=== PATIENT | female | born 1965 | race African-American/Black ===

== ENCOUNTER 2016-08-28 18:05 | Inpatient (IN) | payer OTHER ==
[~2016-08-28] VITALS: Ht 157.5 cm; Wt 94.9 kg
[~2016-08-28 18:05] MED LIST: AMLO10TA4; COR12; DIXL5; FURO-151; GABA300C; GLYB5TAB4; LISI-604; LORA10CA; METF10002; POTA8TAB4; PROT40; ZOLP10TA2
[2016-08-28] MEDS ORDERED: ASPIRIN 81MG TABLET PO STA (18:46)
[2016-08-28] MEDS ORDERED: ONDANSETRON HCL 4MG/2ML VIAL IV STA (18:46)
[2016-08-28] MEDS ORDERED: MORPHINE SULFATE 4 MG/ML CPJ (NOT FOR IM USE) IV STA (18:46)
[2016-08-28] MEDS ORDERED: METHYLPREDNISOLONE SOD SUCC 125 MG/2 ML VIAL IV STA (18:46)
[2016-08-28] MEDS ORDERED: IPRATROPIUM/ALBUTEROL 0.5-3(2.5)MG/3ML NEB HHN ONE (19:00)
[2016-08-28] MEDS ORDERED: MAGNESIUM 2 G PREMIX 50 ML IV ONE (19:00)
[2016-08-28] MEDS ORDERED: CLONIDINE 0.2MG TABLET PO ONE (19:00)
[2016-08-28 19:11] LABS: BG BASE EXCESS 0.7 mmol/L (-2.0-2.0); BG CARBOXYHEMOGLOBIN 10.5 % (0.5-1.5); BG DEOXYHEMOGLOBIN 3.4 % (0.0-5.0); BG FRACTION INSPIRED OXYGEN 32; BG HCO3 ACT 25.5 mmol/L (22.0-26.0); BG METHEMOGLOBIN 0.1 % (0.0-1.5); BG OXYGEN SATURATION 96.2 % (92.0-98.5); BG PCO2 41.2 mmHg (35.0-45.0); BG PH 7.409 (7.350-7.450); BG PO2 84.7 mmHg (75.0-100.0); BG SAMPLE SITE RIGHT RADIAL; BG TOTAL HEMOGLOBIN 14.2 g/dL (12.0-18.0); BG VENT MODE NASAL CANNULA
[2016-08-28 19:19] LABS: BASOPHILS % 1.1 % (0.0-2.0); EOSINOPHILS % 1.4 % (0.0-5.0); HEMATOCRIT. 39.9 % (36.0-48.0); HEMOGLOBIN. 13.4 g/dL (12.0-16.0); MEAN CORPUSCULAR HEMOGLOBIN 31.5 pg (28.0-32.0); MEAN CORPUSCULAR VOLUME 93.8 fL (81.0-99.0); MEAN PLATELET VOLUME 7.8 fl (7.4-10.4); NEUTROPHILS % 47.5 % (40.0-76.0); PARTIAL THROMBOPLASTIN TIME 26.3 sec (24.0-34.0); PLATELET 288 x1000/uL (130-400); RED BLOOD CELL COUNT 4.26 mill/uL (4.2-5.4); RED CELL DISTRIBUTION WIDTH 13.7 % (11.6-14.6)
[2016-08-28 19:27] LABS: CARBON DIOXIDE 27 mEq/L (21-32); CHLORIDE 105 mEq/L (98-107); CREATINE KINASE 114 IU/L (26-192)
[2016-08-28 19:28] LABS: TROPONIN I < 0.02 ng/mL (0.00-0.04)
[2016-08-28 20:07] LABS: CLARITY URINE CLEAR (CLEAR); COLOR URINE YELLOW (YELLOW); GLUCOSE URINE NEGATIVE (NEGATIVE); KETONES URINE TRACE (NEGATIVE); LEUKOCYTE ESTERASE URINE NEGATIVE (NEGATIVE); NITRITE URINE NEGATIVE (NEGATIVE); OCCULT BLOOD URINE NEGATIVE (NEGATIVE); PROTEIN URINE 1+ (NEGATIVE); SPECIFIC GRAVITY URINE 1.023 (1.005-1.030)
[2016-08-28 20:18] LABS: *AMPHETAMINES SCREEN URINE NEGATIVE (NEGATIVE); *BARBITURATES SCREEN URINE NEGATIVE (NEGATIVE); *BENZODIAZEPINES SCREEN URINE NEGATIVE (NEGATIVE); *COCAINE SCREEN URINE NEGATIVE (NEGATIVE); CANNABINOID URINE SCREEN NEGATIVE (NEGATIVE); METHADONE URINE SCREEN NEGATIVE (NEGATIVE); OPIATES URINE SCREEN PRESUMTIVE POSITIVE (NEGATIVE); PHENCYCLIDINE URINE SCREEN NEGATIVE (NEGATIVE)
[2016-08-28] MEDS ORDERED: ONDANSETRON HCL 4MG/2ML VIAL IV ONE (22:15)
[2016-08-28] MEDS ORDERED: KETOROLAC 30MG/ML VIAL IV ONE (22:15)
[2016-08-28] MEDS ORDERED: MORPHINE SULFATE 4 MG/ML CPJ (NOT FOR IM USE) IV ONE (22:15)
[2016-08-28] MEDS ORDERED: HYDROCODONE/APAP 7.5/325MG 1 TAB TABLET PO PRN (23:00)
[2016-08-28] MEDS ORDERED: LORAZEPAM 2MG/ML CPJ IV PRN (23:00)
[2016-08-28] MEDS ORDERED: MAGNESIUM/ALUMINUM HYDROXIDE/SIMETHICONE 30ML UDC PO PRN (23:00)
[2016-08-28] MEDS ORDERED: NA PHOS,M-B/NA PHOS,DI-BA ENEMA 118ML PR PRN (23:00)
[2016-08-28] MEDS ORDERED: GUAIFENESIN 200MG/10ML SUGAR FREE UDC PO PRN (23:00)
[2016-08-28] MEDS ORDERED: DIPHENHYDRAMINE 50MG/ML VIAL IV PRN (23:00)
[2016-08-28] MEDS ORDERED: DOCUSATE SODIUM 100MG CAPSULE PO PRN (23:00)
[2016-08-28] MEDS ORDERED: ACETAMINOPHEN 325MG TABLET PO PRN (23:00)
[2016-08-28] MEDS ORDERED: CLONIDINE 0.1MG TABLET PO PRN (23:00)
[2016-08-28] MEDS ORDERED: HYDROMORPHONE HCL/PF 2MG/ML CPJ IV PRN (23:00)
[2016-08-28] MEDS ORDERED: ONDANSETRON HCL 4MG/2ML VIAL IV PRN (23:00)
[2016-08-28] MEDS ORDERED: IPRATROPIUM/ALBUTEROL 0.5-3(2.5)MG/3ML NEB INH PRN (23:00)
[2016-08-29 04:15] VITALS: BP 118/78
[2016-08-29] MEDS ORDERED: DEXTROSE 50% WATER 50ML SYRINGE IV PRN (04:45)
[2016-08-29 04:48] VITALS: BP 118/78
[2016-08-29] MEDS ORDERED: METHYLPREDNISOLONE SOD SUCC 125 MG/2 ML VIAL IV SCH (06:00)
[2016-08-29 07:36] LABS: BASOPHILS % 0.7 % (0.0-2.0); EOSINOPHILS % 0.1 % (0.0-5.0); HEMATOCRIT. 40.5 % (36.0-48.0); HEMOGLOBIN. 13.2 g/dL (12.0-16.0); LYMPHOCYTES % 11.6 % (20.0-50.0); MEAN CORPUSCULAR VOLUME 94.8 fL (81.0-99.0); MEAN PLATELET VOLUME 8.2 fl (7.4-10.4); MONOCYTES % 1.8 % (2.0-8.0); NEUTROPHILS % 85.8 % (40.0-76.0); PLATELET 278 x1000/uL (130-400); RED BLOOD CELL COUNT 4.27 mill/uL (4.2-5.4); RED CELL DISTRIBUTION WIDTH 13.6 % (11.6-14.6)
[2016-08-29] MEDS ORDERED: BLOOD SUGAR DIAGNOSTIC STRIP TEST SCH (07:40)
[2016-08-29 08:02] LABS: CARBON DIOXIDE 27 mEq/L (21-32); CHLORIDE 103 mEq/L (98-107); HDL CHOLESTEROL 38 mg/dL (40-59); T4 FREE 0.89 ng/dL (0.76-1.46); TROPONIN I < 0.02 ng/mL (0.00-0.04)
[2016-08-29 08:07] LABS: LDL CHOLESTEROL 66 mg/dL (5-100)
[2016-08-29] MEDS ORDERED: INSULIN LISPRO 100 UNITS/ML SUBCUT SCH (08:10)
[2016-08-29 08:19] VITALS: BP 138/88
[2016-08-29] MEDS ORDERED: IPRATROPIUM/ALBUTEROL 0.5-3(2.5)MG/3ML NEB HHN PRN (08:45)
[2016-08-29] MEDS ORDERED: FUROSEMIDE 40MG/4ML VIAL IV SCH (09:00)
[2016-08-29] MEDS ORDERED: ENOXAPARIN 40MG/0.4ML SYR SUBCUT SCH (09:00)
[2016-08-29] MEDS ORDERED: ASPIRIN 81MG EC TABLET PO SCH (09:00)
[2016-08-29] MEDS ORDERED: IPRATROPIUM/ALBUTEROL 0.5-3(2.5)MG/3ML NEB HHN SCH (12:00)
== END 2016-08-29 10:50 | disposition left against medical advice (07) | DRG 194 ==
LOC: EDBEDREQ 20:56 → EDBEDREQTM 20:56 → ER 22:32 → 7WST 22:52 → ENRESERV 08-29 02:49
PROVIDERS: ADMIT Internal Medicine; ATTEND Internal Medicine
DX: I11.0 Hypertensive heart disease with heart failure (principal); E11.40 Type 2 diabetes mellitus with diabetic neuropathy, unspecified; E88.81 Metabolic syndrome and other insulin resistance; I50.9 Heart failure, unspecified; E78.5 Hyperlipidemia, unspecified; E66.9 Obesity, unspecified; F17.210 Nicotine dependence, cigarettes, uncomplicated; J44.9 Chronic obstructive pulmonary disease, unspecified; G47.33 Obstructive sleep apnea (adult) (pediatric); Z90.49 Acquired absence of other specified parts of digestive tract; Z68.38 Body mass index [BMI] 38.0-38.9, adult
CPT/HCPCS: 36415; 36600; 71010; 80053; 80061; 80305; 81001; 82375; 82550; 82805; 82962; 83605; 83690; 83880; 84439; 84443; 84484; 85025; 85610; 85730; 87040; 93005; 94640; 96365; 96375; 96376; 99285; J1650; J1815; J1885; J1940; J2270; J2405; J2930; J3475; J7620

== ENCOUNTER 2016-09-20 15:08 | Emergency (ER) | payer OTHER ==
[~2016-09-20] VITALS: Ht 160 cm; Wt 92.0 kg
[2016-09-20] MEDS ORDERED: IPRATROPIUM BROMIDE (0.02%) 0.5MG/2.5ML NEB HHN STA (15:40)
[2016-09-20] MEDS ORDERED: ALBUTEROL (0.083%) 2.5MG/3ML NEB HHN STA (15:40)
[2016-09-20] MEDS ORDERED: KETOROLAC 30MG/ML VIAL IV ONE (15:45)
[2016-09-20 16:18] LABS: BASOPHILS % 1.2 % (0.0-2.0); EOSINOPHILS % 2.3 % (0.0-5.0); HEMATOCRIT. 38.2 % (36.0-48.0); HEMOGLOBIN. 12.8 g/dL (12.0-16.0); LYMPHOCYTES % 44.3 % (20.0-50.0); MEAN CORPUSCULAR HEMOGLOBIN 31.2 pg (28.0-32.0); MEAN CORPUSCULAR VOLUME 93.2 fL (81.0-99.0); MEAN PLATELET VOLUME 8.6 fl (7.4-10.4); MONOCYTES % 7.6 % (2.0-8.0); NEUTROPHILS % 44.6 % (40.0-76.0); PLATELET 238 x1000/uL (130-400); RED CELL DISTRIBUTION WIDTH 13.5 % (11.6-14.6)
[2016-09-20 16:27] LABS: PROTHROMBIN TIME 10.2 sec
[2016-09-20 16:34] LABS: C REACTIVE PROTEIN QUANT 8.6 mg/L (0.0-3.0); CARBON DIOXIDE 30 mEq/L (21-32); CHLORIDE 104 mEq/L (98-107); TROPONIN I < 0.02 ng/mL (0.00-0.04)
[2016-09-20 17:20] VITALS: BP 134/78
== END 2016-09-20 18:06 | disposition home or self-care (01) ==
LOC: ER 15:53
DX: S52.132A Displaced fracture of neck of left radius, initial encounter for closed fracture (principal); I11.0 Hypertensive heart disease with heart failure; I50.9 Heart failure, unspecified; M10.9 Gout, unspecified; J44.9 Chronic obstructive pulmonary disease, unspecified; E11.9 Type 2 diabetes mellitus without complications; F17.200 Nicotine dependence, unspecified, uncomplicated; Z99.81 Dependence on supplemental oxygen; X58.XXXA Exposure to other specified factors, initial encounter; Y93.89 Activity, other specified; Y92.89 Other specified places as the place of occurrence of the external cause; Y99.8 Other external cause status
CPT/HCPCS: 29105; 36415; 71010; 73080; 80053; 83605; 83690; 83880; 84484; 84550; 85025; 85610; 85651; 86140; 87040; 93005; 94640; 96374; 99285; J1885; J7611; Z7610; A4565

== ENCOUNTER 2016-09-21 14:24 | Emergency (ER) | payer OTHER ==
[~2016-09-21] VITALS: Ht 160 cm; Wt 91.0 kg
[2016-09-21 14:34] VITALS: BP 129/74
== END 2016-09-21 16:00 | disposition home or self-care (01) ==
LOC: ER 15:09
DX: Z46.89 Encounter for fitting and adjustment of other specified devices (principal); I10 Essential (primary) hypertension; E11.9 Type 2 diabetes mellitus without complications; R56.9 Unspecified convulsions; J44.9 Chronic obstructive pulmonary disease, unspecified; I50.9 Heart failure, unspecified; F17.200 Nicotine dependence, unspecified, uncomplicated; Z90.49 Acquired absence of other specified parts of digestive tract
CPT/HCPCS: 29105; 99283

== ENCOUNTER 2016-09-28 19:30 | Emergency (ER) | payer OTHER ==
[~2016-09-28] VITALS: Ht 160 cm; Wt 91.0 kg
[2016-09-28] MEDS ORDERED: IPRATROPIUM BROMIDE (0.02%) 0.5MG/2.5ML NEB HHN STA (21:23)
[2016-09-28] MEDS ORDERED: PREDNISONE 20MG TABLET PO STA (21:23)
[2016-09-28] MEDS ORDERED: ALBUTEROL (0.083%) 2.5MG/3ML NEB HHN STA (21:23)
[2016-09-28] MEDS ORDERED: ACETAMINOPHEN WITH CODEINE 300/30MG TABLET PO ONE (21:30)
[2016-09-28 23:17] VITALS: BP 120/77
== END 2016-09-28 23:22 | disposition home or self-care (01) ==
LOC: ER 21:49
DX: S52.132A Displaced fracture of neck of left radius, initial encounter for closed fracture (principal); E11.9 Type 2 diabetes mellitus without complications; J44.9 Chronic obstructive pulmonary disease, unspecified; I50.9 Heart failure, unspecified; F17.200 Nicotine dependence, unspecified, uncomplicated; X58.XXXA Exposure to other specified factors, initial encounter; Y93.89 Activity, other specified; Y92.89 Other specified places as the place of occurrence of the external cause; Y99.8 Other external cause status
CPT/HCPCS: 29105; 99283; 99406; Z7610; A4565; J7512; J7611

== ENCOUNTER 2016-11-17 14:48 | Emergency (ER) | payer OTHER ==
[~2016-11-17] VITALS: Ht 157.5 cm; Wt 93.0 kg
[2016-11-17 14:55] VITALS: BP 136/85
== END 2016-11-17 22:00 | disposition left against medical advice (07) ==
LOC: ER 21:50
DX: R07.9 Chest pain, unspecified (principal); Z53.21 Procedure and treatment not carried out due to patient leaving prior to being seen by health care provider
CPT/HCPCS: 93005

== ENCOUNTER 2017-04-10 02:51 | Emergency (ER) | payer OTHER ==
[~2017-04-10] VITALS: Ht 157.5 cm; Wt 87.0 kg
[2017-04-10] MEDS ORDERED: ALBUTEROL (0.083%) 2.5MG/3ML NEB HHN STA (03:17)
[2017-04-10] MEDS ORDERED: IPRATROPIUM BROMIDE (0.02%) 0.5MG/2.5ML NEB HHN STA (03:17)
[2017-04-10] MEDS ORDERED: METHYLPREDNISOLONE SOD SUCC 125 MG/2 ML VIAL IV STA (03:17)
[2017-04-10] MEDS ORDERED: MAGNESIUM 2 G PREMIX 50 ML IV ONE (03:30)
[2017-04-10 03:37] LABS: BASOPHILS % 1.2 % (0.0-2.0); EOSINOPHILS % 2.3 % (0.0-5.0); HEMATOCRIT. 40.6 % (36.0-48.0); HEMOGLOBIN. 13.5 g/dL (12.0-16.0); LYMPHOCYTES % 47.3 % (20.0-50.0); MEAN CORPUSCULAR HEMOGLOBIN 30.9 pg (28.0-32.0); MEAN CORPUSCULAR VOLUME 93.1 fL (81.0-99.0); MONOCYTES % 5.8 % (2.0-8.0); NEUTROPHILS % 43.4 % (40.0-76.0); PLATELET 245 x1000/uL (130-400); RED BLOOD CELL COUNT 4.35 mill/uL (4.2-5.4); RED CELL DISTRIBUTION WIDTH 13.3 % (11.6-14.6)
[2017-04-10 03:45] LABS: INR 0.9; PROTHROMBIN TIME 9.8 sec (9.4-11.6)
[2017-04-10 03:53] LABS: CARBON DIOXIDE 28 mEq/L (21-32); CHLORIDE 107 mEq/L (98-107); TROPONIN I < 0.02 ng/mL (0.00-0.04)
[2017-04-10 08:18] VITALS: BP 139/78
== END 2017-04-10 09:02 | disposition left against medical advice (07) ==
LOC: ER 02:51 → EDBEDREQSVC 05:55 → EDBEDREQTM 05:55 → EDBEDREQ 05:55 → ENRESERV 07:03 → CANRESERV 07:03 → ER 09:02 → CANBEDREQ 16:29
DX: J44.1 Chronic obstructive pulmonary disease with (acute) exacerbation (principal); J96.90 Respiratory failure, unspecified, unspecified whether with hypoxia or hypercapnia; E11.9 Type 2 diabetes mellitus without complications; I50.9 Heart failure, unspecified; G40.909 Epilepsy, unspecified, not intractable, without status epilepticus; Z90.49 Acquired absence of other specified parts of digestive tract
CPT/HCPCS: 36415; 71045; 80053; 83605; 83880; 84484; 85025; 85610; 87040; 87804; 93005; 94644; 94660; 96365; 96375; 99291; J2930; J3475; J7611; Z7610

== ENCOUNTER 2017-05-30 07:54 | Emergency (ER) | payer OTHER ==
[~2017-05-30] VITALS: Ht 157.5 cm; Wt 87.0 kg
[2017-05-30] MEDS ORDERED: SODIUM CHLORIDE 0.9% 1,000 ML IV ONE (09:18)
[2017-05-30] MEDS ORDERED: DIPHENHYDRAMINE 50MG/ML VIAL IV ONE (09:30)
[2017-05-30] MEDS ORDERED: METOCLOPRAMIDE HCL 10MG/2ML VIAL IV ONE (09:30)
[2017-05-30 09:34] LABS: EOSINOPHILS % 1.6 % (0.0-5.0); HEMATOCRIT. 37.3 % (36.0-48.0); HEMOGLOBIN. 12.7 g/dL (12.0-16.0); LYMPHOCYTES % 45.3 % (20.0-50.0); MEAN CORPUSCULAR HEMOGLOBIN 31.4 pg (28.0-32.0); MEAN CORPUSCULAR VOLUME 92.2 fL (81.0-99.0); MEAN PLATELET VOLUME 7.9 fl (7.4-10.4); MONOCYTES % 7.5 % (2.0-8.0); NEUTROPHILS % 44.6 % (40.0-76.0); PLATELET 257 x1000/uL (130-400); RED BLOOD CELL COUNT 4.05 mill/uL (4.2-5.4); RED CELL DISTRIBUTION WIDTH 13.1 % (11.6-14.6)
[2017-05-30 09:43] LABS: PARTIAL THROMBOPLASTIN TIME 25.8 sec (23.4-31.0); PROTHROMBIN TIME 10.3 sec (9.4-11.6)
[2017-05-30 09:45] LABS: CHLORIDE 107 mEq/L (98-107)
[2017-05-30] MEDS ORDERED: ASPIRIN 81MG TABLET PO ONE (11:15)
[2017-05-30] MEDS ORDERED: PHENYTOIN SODIUM 1,000 MG in SODIUM CHLORIDE 0.9% 100 ML IV ONE (11:30)
[2017-05-30 15:07] LABS: *AMPHETAMINES SCREEN URINE NEGATIVE (NEGATIVE); *BARBITURATES SCREEN URINE NEGATIVE (NEGATIVE); *BENZODIAZEPINES SCREEN URINE NEGATIVE (NEGATIVE); *COCAINE SCREEN URINE NEGATIVE (NEGATIVE); METHADONE URINE SCREEN NEGATIVE (NEGATIVE); OPIATES URINE SCREEN PRESUMTIVE POSITIVE (NEGATIVE)
[2017-05-30 15:08] LABS: CANNABINOID URINE SCREEN NEGATIVE (NEGATIVE); PHENCYCLIDINE URINE SCREEN NEGATIVE (NEGATIVE)
[2017-05-30] MEDS ORDERED: ACETAMINOPHEN 325MG TABLET PO PRN (16:15)
[2017-05-30] MEDS ORDERED: IPRATROPIUM/ALBUTEROL 0.5-3(2.5)MG/3ML NEB INH PRN (16:15)
[2017-05-30] MEDS ORDERED: ONDANSETRON HCL 4MG/2ML VIAL IV PRN (16:15)
[2017-05-30] MEDS ORDERED: ENOXAPARIN 40MG/0.4ML SYR SUBCUT SCH (16:15)
[2017-05-30] MEDS ORDERED: DOCUSATE SODIUM 100MG CAPSULE PO PRN (16:15)
[2017-05-30] MEDS ORDERED: LORAZEPAM 2MG/ML CPJ IV PRN (16:15)
[2017-05-30] MEDS ORDERED: CARVEDILOL 12.5MG TABLET PO SCH (17:00)
[2017-05-30 17:18] VITALS: BP 126/82
[2017-05-31] MEDS ORDERED: FUROSEMIDE 40MG TABLET PO SCH (09:00)
[2017-05-31] MEDS ORDERED: AMLODIPINE 10MG TABLET PO SCH (09:00)
[2017-05-31] MEDS ORDERED: GLYBURIDE 5MG TABLET PO SCH (09:00)
[2017-05-31] MEDS ORDERED: PANTOPRAZOLE 40MG DR TABLET PO SCH (09:00)
[2017-05-31] MEDS ORDERED: LISINOPRIL 20MG TABLET PO SCH (09:00)
[2017-05-31] MEDS ORDERED: GABAPENTIN 300MG CAPSULE PO SCH (09:00)
[2017-05-31] MEDS ORDERED: POTASSIUM CHLORIDE 8 MEQ TABLET.SA PO SCH (09:00)
== END 2017-05-30 19:09 | disposition left against medical advice (07) ==
LOC: ER 08:39 → EDBEDREQ 11:38 → EDBEDREQTM 11:38 → ER 19:09 → CANBEDREQ 21:24
DX: R55 Syncope and collapse (principal); R51 Headache; G40.909 Epilepsy, unspecified, not intractable, without status epilepticus; I50.32 Chronic diastolic (congestive) heart failure; J44.9 Chronic obstructive pulmonary disease, unspecified; I11.0 Hypertensive heart disease with heart failure; H40.9 Unspecified glaucoma; E11.42 Type 2 diabetes mellitus with diabetic polyneuropathy; Z87.891 Personal history of nicotine dependence; Z91.14 Patient's other noncompliance with medication regimen; Z79.84 Long term (current) use of oral hypoglycemic drugs; Z79.82 Long term (current) use of aspirin; Z99.81 Dependence on supplemental oxygen; Z90.49 Acquired absence of other specified parts of digestive tract
CPT/HCPCS: 36415; 70450; 70544; 70553; 71045; 80053; 80185; 80305; 84484; 85025; 85610; 85730; 93005; 96361; 96365; 96366; 96375; 99285; J1165; J1200; J2765; J7030; J7050

== ENCOUNTER 2017-07-09 16:01 | Emergency (ER) | payer OTHER ==
[2017-07-09] MEDS ORDERED: IBUPROFEN 800MG TABLET PO ONE (17:15)
== END 2017-07-09 17:36 | disposition left against medical advice (07) ==
LOC: ER 17:34
DX: M54.2 Cervicalgia (principal); M54.5 Low back pain; M79.605 Pain in left leg; V89.2XXA Person injured in unspecified motor-vehicle accident, traffic, initial encounter; Y93.9 Activity, unspecified; Y92.410 Unspecified street and highway as the place of occurrence of the external cause
CPT/HCPCS: 99281

== ENCOUNTER 2017-07-21 15:02 | Emergency (ER) | payer OTHER ==
[~2017-07-21] VITALS: Ht 157.5 cm; Wt 92.0 kg
[2017-07-21 15:26] VITALS: BP 158/84
== END 2017-07-21 18:02 | disposition left against medical advice (07) ==
LOC: ER 17:43
DX: R51 Headache (principal); Z53.21 Procedure and treatment not carried out due to patient leaving prior to being seen by health care provider

== ENCOUNTER 2017-07-26 08:52 | Emergency (ER) | payer OTHER ==
[~2017-07-26] VITALS: Ht 157.5 cm; Wt 87.0 kg
[2017-07-26] MEDS ORDERED: ONDANSETRON HCL 4MG/2ML VIAL IV STA (09:31)
[2017-07-26] MEDS ORDERED: DICYCLOMINE 10 MG/5 ML ORAL SYR PO STA (09:31)
[2017-07-26] MEDS ORDERED: KETOROLAC 30MG/ML VIAL IV STA (09:31)
[2017-07-26] MEDS ORDERED: VISCOUS LIDOCAINE 2% 15 ML UDC PO STA (09:31)
[2017-07-26] MEDS ORDERED: MAGNESIUM/ALUMINUM HYDROXIDE/SIMETHICONE 30ML UDC PO STA (09:31)
[2017-07-26] MEDS ORDERED: SODIUM CHLORIDE 0.9% 1,000 ML IV ONE (09:31)
[2017-07-26] MEDS ORDERED: METOCLOPRAMIDE HCL 10MG/2ML VIAL IV ONE (09:45)
[2017-07-26] MEDS ORDERED: FAMOTIDINE 20MG/2ML VIAL IV ONE (09:45)
[2017-07-26] MEDS: DICYCLOMINE HCL 10MG CAPSULE PO STA ×2 (10:11→10:12)
[2017-07-26 11:07] LABS: BASOPHILS % 1.4 % (0.0-2.0); EOSINOPHILS % 0.8 % (0.0-5.0); HEMATOCRIT. 37.2 % (36.0-48.0); HEMOGLOBIN. 12.6 g/dL (12.0-16.0); LYMPHOCYTES % 39.2 % (20.0-50.0); MEAN CORPUSCULAR HEMOGLOBIN 31.7 pg (28.0-32.0); MEAN CORPUSCULAR VOLUME 93.1 fL (81.0-99.0); MEAN PLATELET VOLUME 8.1 fl (7.4-10.4); MONOCYTES % 6.7 % (2.0-8.0); NEUTROPHILS % 51.9 % (40.0-76.0); PLATELET 247 x1000/uL (130-400); RED BLOOD CELL COUNT 3.99 mill/uL (4.2-5.4); RED CELL DISTRIBUTION WIDTH 13.5 % (11.6-14.6)
[2017-07-26 11:11] LABS: CHLORIDE 108 mEq/L (98-107)
[2017-07-26 12:30] VITALS: BP 128/80
== END 2017-07-26 12:54 | disposition home or self-care (01) ==
LOC: ER 08:52
DX: R51 Headache (principal); H53.8 Other visual disturbances; I50.9 Heart failure, unspecified; J44.9 Chronic obstructive pulmonary disease, unspecified; E11.9 Type 2 diabetes mellitus without complications; E78.00 Pure hypercholesterolemia, unspecified; K21.9 Gastro-esophageal reflux disease without esophagitis; F17.200 Nicotine dependence, unspecified, uncomplicated; Z90.49 Acquired absence of other specified parts of digestive tract; Z79.899 Other long term (current) drug therapy
CPT/HCPCS: 36415; 80053; 82962; 85025; 93005; 96361; 96374; 96375; 99285; J1885; J2405; J2765; J3490; J7030; Z7610

== ENCOUNTER 2017-09-17 10:24 | Emergency (ER) | payer OTHER ==
[~2017-09-17] VITALS: Ht 167.6 cm; Wt 88.7 kg
[~2017-09-17 10:24] MED LIST changes: -METF10002; +METF10004
[2017-09-17 10:39] VITALS: BP 126/72
== END 2017-09-17 20:45 | disposition left against medical advice (07) ==
LOC: ER 10:24
DX: Z53.21 Procedure and treatment not carried out due to patient leaving prior to being seen by health care provider (principal)

== ENCOUNTER 2017-09-22 15:36 | Emergency (ER) | payer OTHER ==
[~2017-09-22] VITALS: Ht 157.5 cm; Wt 88.0 kg
[2017-09-22 15:47] VITALS: BP 133/79
== END 2017-09-22 18:07 | disposition left against medical advice (07) ==
LOC: ER 16:53
DX: M25.521 Pain in right elbow (principal); J44.9 Chronic obstructive pulmonary disease, unspecified; I50.9 Heart failure, unspecified; G40.909 Epilepsy, unspecified, not intractable, without status epilepticus
CPT/HCPCS: 73080; 99284; A4565

== ENCOUNTER 2017-11-01 07:51 | Emergency (ER) | payer OTHER ==
[~2017-11-01] VITALS: Ht 160 cm; Wt 86.0 kg
[2017-11-01] MEDS ORDERED: KETOROLAC 60MG/2ML VIAL IM ONE (10:15)
[2017-11-01 10:20] VITALS: BP 109/66
== END 2017-11-01 11:53 | disposition home or self-care (01) ==
LOC: ER 07:51
DX: M54.42 Lumbago with sciatica, left side (principal); E11.9 Type 2 diabetes mellitus without complications; I50.9 Heart failure, unspecified; J44.9 Chronic obstructive pulmonary disease, unspecified; Z90.49 Acquired absence of other specified parts of digestive tract; Z79.84 Long term (current) use of oral hypoglycemic drugs
CPT/HCPCS: 81025; 96372; 99283; J1885

== ENCOUNTER 2017-12-04 16:12 | Emergency (ER) | payer OTHER | END 2017-12-04 18:55 | disposition left against medical advice (07) | LOC: ER 16:12 | DX: R07.9 Chest pain, unspecified (principal); Z53.21 Procedure and treatment not carried out due to patient leaving prior to being seen by health care provider ==

== ENCOUNTER 2018-04-10 17:30 | Emergency (ER) | payer OTHER ==
[~2018-04-10] VITALS: Ht 160 cm; Wt 86.0 kg
[~2018-04-10 17:30] MED LIST changes: +METF-416; -METF10004
[2018-04-10 17:44] VITALS: BP 154/85
== END 2018-04-10 21:30 | disposition left against medical advice (07) ==
LOC: ER 17:30
DX: Z53.21 Procedure and treatment not carried out due to patient leaving prior to being seen by health care provider (principal)
CPT/HCPCS: 93005

== ENCOUNTER 2018-06-05 09:58 | Emergency (ER) | payer OTHER ==
[~2018-06-05] VITALS: Ht 157.5 cm; Wt 80.0 kg
[2018-06-05] MEDS ORDERED: MORPHINE SULFATE 4 MG/ML CPJ (NOT FOR IM USE) IV STA (10:18)
[2018-06-05] MEDS ORDERED: ONDANSETRON HCL 4MG/2ML INJ IV STA (10:18)
[2018-06-05] MEDS ORDERED: ALBUTEROL (0.083%) 2.5MG/3ML NEB HHN STA (10:18)
[2018-06-05] MEDS ORDERED: METHYLPREDNISOLONE SOD SUCC 125 MG/2 ML VIAL IV STA (10:18)
[2018-06-05] MEDS ORDERED: MAGNESIUM 2 G PREMIX 50 ML IV STA (10:18)
[2018-06-05] MEDS ORDERED: IPRATROPIUM BROMIDE (0.02%) 0.5MG/2.5ML NEB HHN STA (10:18)
[2018-06-05 10:30] LABS: BASOPHILS % 1.1 % (0.0-2.0); EOSINOPHILS % 1.3 % (0.0-5.0); HEMATOCRIT. 38.5 % (36.0-48.0); HEMOGLOBIN. 12.9 g/dL (12.0-16.0); LYMPHOCYTES % 37.8 % (20.0-50.0); MEAN CORPUSCULAR HEMOGLOBIN 32.1 pg (28.0-32.0); MEAN CORPUSCULAR VOLUME 95.6 fL (81.0-99.0); MEAN PLATELET VOLUME 7.8 fl (7.4-10.4); MONOCYTES % 6.6 % (2.0-8.0); NEUTROPHILS % 53.2 % (40.0-76.0); PLATELET 266 x1000/uL (130-400); RED BLOOD CELL COUNT 4.03 mill/uL (4.2-5.4); RED CELL DISTRIBUTION WIDTH 13.3 % (11.6-14.6)
[2018-06-05 10:37] LABS: CHLORIDE 106 mEq/L (98-107)
[2018-06-05] MEDS ORDERED: KETOROLAC 30MG/ML VIAL IV ONE (11:30)
[2018-06-05 12:03] VITALS: BP 142/80
== END 2018-06-05 12:33 | disposition home or self-care (01) ==
LOC: ER 09:58
DX: R07.89 Other chest pain (principal); J20.9 Acute bronchitis, unspecified; I11.0 Hypertensive heart disease with heart failure; I50.9 Heart failure, unspecified; E11.9 Type 2 diabetes mellitus without complications; G40.909 Epilepsy, unspecified, not intractable, without status epilepticus; F17.210 Nicotine dependence, cigarettes, uncomplicated; Z90.49 Acquired absence of other specified parts of digestive tract; Z79.84 Long term (current) use of oral hypoglycemic drugs
CPT/HCPCS: 36415; 71045; 80053; 83880; 84484; 85025; 93005; 94644; 96365; 96375; 99285; J1885; J2270; J2405; J2930; J3475; J7611; Z7610

== ENCOUNTER 2018-06-23 07:47 | Emergency (ER) | payer OTHER ==
[~2018-06-23] VITALS: Ht 157.5 cm; Wt 89.6 kg
[2018-06-23 08:14] VITALS: BP 105/63
== END 2018-06-23 11:23 | disposition left against medical advice (07) ==
LOC: ER 07:57
DX: R06.02 Shortness of breath (principal); Z53.21 Procedure and treatment not carried out due to patient leaving prior to being seen by health care provider

== ENCOUNTER 2018-08-07 08:10 | Emergency (ER) | payer OTHER ==
[~2018-08-07] VITALS: Ht 160 cm; Wt 86.0 kg
[2018-08-07] MEDS ORDERED: FAMOTIDINE 20MG TABLET PO ONE (08:45)
[2018-08-07] MEDS ORDERED: DIPHENHYDRAMINE 25MG CAPSULE PO ONE ×2 (08:45→09:45)
[2018-08-07] MEDS ORDERED: PREDNISONE 20MG TABLET PO ONE (09:45)
[2018-08-07 10:31] VITALS: BP 138/84
== END 2018-08-07 10:32 | disposition home or self-care (01) ==
LOC: ER 08:10
DX: T46.4X5A Adverse effect of angiotensin-converting-enzyme inhibitors, initial encounter (principal); F17.210 Nicotine dependence, cigarettes, uncomplicated; E11.9 Type 2 diabetes mellitus without complications; I11.0 Hypertensive heart disease with heart failure; I50.9 Heart failure, unspecified; J44.9 Chronic obstructive pulmonary disease, unspecified; G40.909 Epilepsy, unspecified, not intractable, without status epilepticus; Z90.49 Acquired absence of other specified parts of digestive tract; Y92.018 Other place in single-family (private) house as the place of occurrence of the external cause
CPT/HCPCS: 99284; J7512; Q0163

== ENCOUNTER 2018-09-18 01:59 | Emergency (ER) | payer OTHER ==
[~2018-09-18] VITALS: Ht 157.5 cm; Wt 86.0 kg
[2018-09-18 02:45] VITALS: BP 160/87
== END 2018-09-18 05:03 | disposition left against medical advice (07) ==
LOC: ER 04:47
DX: Z53.21 Procedure and treatment not carried out due to patient leaving prior to being seen by health care provider (principal)
CPT/HCPCS: 93005

== ENCOUNTER 2018-11-22 08:18 | Emergency (ER) | payer OTHER ==
[~2018-11-22] VITALS: Ht 160 cm; Wt 86.0 kg
[2018-11-22] MEDS ORDERED: VISCOUS LIDOCAINE 2% 15 ML UDC MM PRN (10:00)
[2018-11-22 11:35] VITALS: BP 137/91
== END 2018-11-22 11:45 | disposition home or self-care (01) ==
LOC: ER 08:18
DX: J44.9 Chronic obstructive pulmonary disease, unspecified (principal); K14.0 Glossitis; J98.8 Other specified respiratory disorders; I11.0 Hypertensive heart disease with heart failure; I50.9 Heart failure, unspecified; E11.9 Type 2 diabetes mellitus without complications; Z90.49 Acquired absence of other specified parts of digestive tract; F17.200 Nicotine dependence, unspecified, uncomplicated; Z79.899 Other long term (current) drug therapy
CPT/HCPCS: 71045; 81025; 99283

== ENCOUNTER 2019-02-22 08:36 | Emergency (ER) | payer OTHER ==
[~2019-02-22] VITALS: Ht 160 cm; Wt 86.0 kg
[2019-02-22] MEDS ORDERED: MORPHINE SULFATE 4 MG/ML CPJ (NOT FOR IM USE) IV STA (09:09)
[2019-02-22] MEDS ORDERED: KETOROLAC 30MG/ML VIAL IV ONE (09:15)
[2019-02-22 11:05] VITALS: BP 136/65
== END 2019-02-22 11:41 | disposition home or self-care (01) ==
LOC: ER 08:36
DX: M25.522 Pain in left elbow (principal); J44.9 Chronic obstructive pulmonary disease, unspecified; I11.0 Hypertensive heart disease with heart failure; I50.9 Heart failure, unspecified; E11.9 Type 2 diabetes mellitus without complications; G40.909 Epilepsy, unspecified, not intractable, without status epilepticus; F17.210 Nicotine dependence, cigarettes, uncomplicated; Z79.84 Long term (current) use of oral hypoglycemic drugs; Z90.49 Acquired absence of other specified parts of digestive tract; W22.8XXA Striking against or struck by other objects, initial encounter; Y93.89 Activity, other specified; Y92.018 Other place in single-family (private) house as the place of occurrence of the external cause
CPT/HCPCS: 73030; 73070; 96374; 96375; 99283; J1885; J2270; Z7610

== ENCOUNTER 2019-04-05 00:30 | Emergency (ER) | payer OTHER ==
[~2019-04-05] VITALS: Ht 160 cm; Wt 84.0 kg
[2019-04-05] MEDS ORDERED: IPRATROPIUM BROMIDE (0.02%) 0.5MG/2.5ML NEB HHN STA (01:16)
[2019-04-05] MEDS ORDERED: METHYLPREDNISOLONE SOD SUCC 125 MG/2 ML VIAL IV STA (01:16)
[2019-04-05] MEDS ORDERED: MAGNESIUM 2 G PREMIX 50 ML IV ONE (01:30)
[2019-04-05] MEDS: ALBUTEROL (0.083%) 2.5MG/3ML NEB HHN SCH ×3 (01:34→02:35)
[2019-04-05 01:56] LABS: BASOPHILS % 1.8 % (0.0-2.0); HEMATOCRIT. 38.5 % (36.0-48.0); HEMOGLOBIN. 12.8 g/dL (12.0-16.0); LYMPHOCYTES % 34.3 % (20.0-50.0); MEAN CORPUSCULAR HEMOGLOBIN 31.3 pg (28.0-32.0); MEAN CORPUSCULAR VOLUME 94.3 fL (81.0-99.0); MEAN PLATELET VOLUME 7.9 fl (7.4-10.4); MONOCYTES % 9.2 % (2.0-8.0); NEUTROPHILS % 52.7 % (40.0-76.0); PLATELET 250 x1000/uL (130-400); RED BLOOD CELL COUNT 4.09 mill/uL (4.2-5.4); RED CELL DISTRIBUTION WIDTH 13.7 % (11.6-14.6)
[2019-04-05 02:05] LABS: CHLORIDE 104 mEq/L (98-107)
[2019-04-05] MEDS ORDERED: KETOROLAC 30MG/ML VIAL IV NR (04:15)
[2019-04-05 06:01] VITALS: BP 121/78
[2019-04-05] MEDS ORDERED: IOHEXOL-300 100 ML BOTTLE ONE (06:45)
== END 2019-04-05 06:03 | disposition left against medical advice (07) ==
LOC: ER 00:48
DX: H92.03 Otalgia, bilateral (principal); R06.02 Shortness of breath; J44.9 Chronic obstructive pulmonary disease, unspecified; I11.0 Hypertensive heart disease with heart failure; I50.9 Heart failure, unspecified; E11.9 Type 2 diabetes mellitus without complications; G40.909 Epilepsy, unspecified, not intractable, without status epilepticus; F17.210 Nicotine dependence, cigarettes, uncomplicated; Z99.81 Dependence on supplemental oxygen; Z79.84 Long term (current) use of oral hypoglycemic drugs; Z90.49 Acquired absence of other specified parts of digestive tract
CPT/HCPCS: 36415; 71045; 80053; 83880; 84484; 85025; 87804; 93005; 94640; 96365; 96366; 96375; 99285; J1885; J2930; J3475; J7611; Q9967; Z7610

== ENCOUNTER 2019-04-30 07:45 | Emergency (ER) | payer OTHER ==
[~2019-04-30] VITALS: Ht 157.5 cm; Wt 90.0 kg
[2019-04-30 08:43] LABS: EOSINOPHILS % 1.4 % (0.0-5.0); HEMATOCRIT. 39.7 % (36.0-48.0); HEMOGLOBIN. 13.5 g/dL (12.0-16.0); LYMPHOCYTES % 31.6 % (20.0-50.0); MEAN CORPUSCULAR HEMOGLOBIN 32.3 pg (28.0-32.0); MEAN CORPUSCULAR VOLUME 94.7 fL (81.0-99.0); MEAN PLATELET VOLUME 7.9 fl (7.4-10.4); MONOCYTES % 7.5 % (2.0-8.0); NEUTROPHILS % 58.5 % (40.0-76.0); PLATELET 240 x1000/uL (130-400); RED BLOOD CELL COUNT 4.19 mill/uL (4.2-5.4); RED CELL DISTRIBUTION WIDTH 14.2 % (11.6-14.6)
[2019-04-30 08:48] LABS: CHLORIDE 108 mEq/L (98-107)
[2019-04-30 08:52] LABS: ETHANOL BLOOD < 10 mg/dL
[2019-04-30] MEDS ORDERED: VISCOUS LIDOCAINE 2% 15 ML UDC MM STA (09:19)
[2019-04-30] MEDS ORDERED: MAGNESIUM/ALUMINUM HYDROXIDE/SIMETHICONE 30ML UDC PO ONE (09:30)
[2019-04-30 10:19] LABS: *AMPHETAMINES SCREEN URINE NEGATIVE (NEGATIVE)
[2019-04-30 10:20] LABS: *BARBITURATES SCREEN URINE NEGATIVE (NEGATIVE); *BENZODIAZEPINES SCREEN URINE NEGATIVE (NEGATIVE); *COCAINE SCREEN URINE NEGATIVE (NEGATIVE); OPIATES URINE SCREEN PRESUMTIVE POSITIVE (NEGATIVE)
[2019-04-30 10:21] LABS: CANNABINOID URINE SCREEN NEGATIVE (NEGATIVE); PHENCYCLIDINE URINE SCREEN NEGATIVE (NEGATIVE)
[2019-04-30 10:27] LABS: METHADONE URINE SCREEN NEGATIVE (NEGATIVE)
[2019-04-30] MEDS ORDERED: MORPHINE SULFATE 10 MG/ML CPJ IM ONE (10:30)
[2019-04-30] MEDS ORDERED: ONDANSETRON 4MG ODT PO ONE (10:30)
[2019-04-30 10:34] VITALS: BP 134/78
== END 2019-04-30 10:52 | disposition home or self-care (01) ==
LOC: ER 07:45
DX: R10.12 Left upper quadrant pain (principal); I11.0 Hypertensive heart disease with heart failure; I50.9 Heart failure, unspecified; G40.909 Epilepsy, unspecified, not intractable, without status epilepticus; E11.9 Type 2 diabetes mellitus without complications; Z90.49 Acquired absence of other specified parts of digestive tract; Z79.84 Long term (current) use of oral hypoglycemic drugs
CPT/HCPCS: 36415; 71045; 74176; 80053; 80305; 80320; 83690; 83880; 84484; 85025; 93005; 96372; 99285; J2270; Q0162; G0480

== ENCOUNTER 2019-05-10 16:57 | Emergency (ER) | payer MEDICAID, OTHER | END 2019-05-10 17:47 | disposition left against medical advice (07) | LOC: ER 16:57 | DX: Z53.21 Procedure and treatment not carried out due to patient leaving prior to being seen by health care provider (principal) ==

== ENCOUNTER 2019-08-26 16:10 | Emergency (ER) | payer MEDICAID ==
[~2019-08-26] VITALS: Ht 157.5 cm; Wt 81.0 kg
[2019-08-26 16:22] VITALS: BP 162/96
[2019-08-26] MEDS ORDERED: KETOROLAC 30MG/ML VIAL IM ONE (18:00)
[2019-08-26] MEDS ORDERED: CYCLOBENZAPRINE 10MG TABLET PO ONE (18:00)
== END 2019-08-26 19:45 | disposition home or self-care (01) ==
LOC: ER 16:10
DX: S39.012A Strain of muscle, fascia and tendon of lower back, initial encounter (principal); S33.5XXA Sprain of ligaments of lumbar spine, initial encounter; S16.1XXA Strain of muscle, fascia and tendon at neck level, initial encounter; I11.0 Hypertensive heart disease with heart failure; I50.9 Heart failure, unspecified; E11.9 Type 2 diabetes mellitus without complications; J44.9 Chronic obstructive pulmonary disease, unspecified; Z90.49 Acquired absence of other specified parts of digestive tract; Z79.899 Other long term (current) drug therapy; V89.2XXA Person injured in unspecified motor-vehicle accident, traffic, initial encounter; Y93.89 Activity, other specified; Y92.89 Other specified places as the place of occurrence of the external cause; Y99.8 Other external cause status
CPT/HCPCS: 72040; 72131; 96372; 99284; J1885

== ENCOUNTER 2019-09-16 07:38 | Emergency (ER) | payer MEDICAID ==
[~2019-09-16] VITALS: Ht 165.1 cm; Wt 73.0 kg
[2019-09-16 07:42] VITALS: BP 150/98
[2019-09-16] MEDS ORDERED: KETOROLAC 60MG/2ML VIAL IM ONE (08:15)
== END 2019-09-16 09:16 | disposition left against medical advice (07) ==
LOC: ER 08:08
DX: G89.29 Other chronic pain (principal); M54.5 Low back pain; I11.0 Hypertensive heart disease with heart failure; I50.9 Heart failure, unspecified; E11.9 Type 2 diabetes mellitus without complications; Z79.899 Other long term (current) drug therapy; Z90.49 Acquired absence of other specified parts of digestive tract
CPT/HCPCS: 96372; 99283; J1885

== ENCOUNTER 2019-09-16 07:50 | Emergency (ER) | payer MEDICAID | END 2019-09-16 08:03 | disposition home or self-care (01) | LOC: ER 07:50 | DX: Z53.21 Procedure and treatment not carried out due to patient leaving prior to being seen by health care provider (principal) | CPT/HCPCS: 99281 ==

== ENCOUNTER 2019-10-01 13:40 | Emergency (ER) | payer MEDICAID ==
[~2019-10-01] VITALS: Ht 167.6 cm; Wt 86.0 kg
[2019-10-01] MEDS ORDERED: KETOROLAC 60MG/2ML VIAL IM ONE (15:00)
[2019-10-01] MEDS ORDERED: BACITRACIN ZINC OINT UDPKT TOP ONE (15:45)
[2019-10-01 16:00] VITALS: BP 128/82
== END 2019-10-01 16:01 | disposition home or self-care (01) ==
LOC: ER 13:40
DX: S33.5XXA Sprain of ligaments of lumbar spine, initial encounter (principal); S80.812A Abrasion, left lower leg, initial encounter; S80.12XA Contusion of left lower leg, initial encounter; S80.11XA Contusion of right lower leg, initial encounter; J44.9 Chronic obstructive pulmonary disease, unspecified; G40.909 Epilepsy, unspecified, not intractable, without status epilepticus; I11.0 Hypertensive heart disease with heart failure; I50.9 Heart failure, unspecified; E11.9 Type 2 diabetes mellitus without complications; Z99.81 Dependence on supplemental oxygen; Z79.01 Long term (current) use of anticoagulants; Z90.49 Acquired absence of other specified parts of digestive tract; V43.52XA Car driver injured in collision with other type car in traffic accident, initial encounter; Y93.89 Activity, other specified; Y92.488 Other paved roadways as the place of occurrence of the external cause
CPT/HCPCS: 72100; 73590; 96372; 99284; J1885

== ENCOUNTER 2019-10-12 18:56 | Emergency (ER) | payer MEDICAID, OTHER ==
[~2019-10-12] VITALS: Ht 160 cm; Wt 86.0 kg
[2019-10-12 18:59] VITALS: BP 164/95
[2019-10-12] MEDS ORDERED: IBUPROFEN 600MG TABLET PO STA (19:12)
[2019-10-12 19:45] LABS: BASOPHILS % 0.8 % (0.0-2.0); EOSINOPHILS % 1.8 % (0.0-5.0); HEMATOCRIT. 40.8 % (36.0-48.0); HEMOGLOBIN. 13.4 g/dL (12.0-16.0); MEAN CORPUSCULAR HEMOGLOBIN 31.7 pg (28.0-32.0); MEAN CORPUSCULAR VOLUME 96.6 fL (81.0-99.0); MEAN PLATELET VOLUME 7.6 fl (7.4-10.4); MONOCYTES % 6.8 % (2.0-8.0); NEUTROPHILS % 49.6 % (40.0-76.0); PLATELET 274 x1000/uL (130-400); RED BLOOD CELL COUNT 4.22 mill/uL (4.2-5.4); RED CELL DISTRIBUTION WIDTH 14.6 % (11.6-14.6)
[2019-10-12] MEDS ORDERED: PIPERACILLIN/TAZ 3.375G PREMIX 50 ML IV ONE (19:45)
[2019-10-12 19:50] LABS: CHLORIDE 107 mEq/L (98-107)
== END 2019-10-12 20:47 | disposition home or self-care (01) ==
LOC: ER 18:56
DX: L03.116 Cellulitis of left lower limb (principal); M31.1 Thrombotic microangiopathy; J44.9 Chronic obstructive pulmonary disease, unspecified; I11.0 Hypertensive heart disease with heart failure; I50.9 Heart failure, unspecified; E11.9 Type 2 diabetes mellitus without complications; Z90.49 Acquired absence of other specified parts of digestive tract; Z79.899 Other long term (current) drug therapy
CPT/HCPCS: 36415; 73590; 80053; 85025; 87040; 96365; 99284; J2543

== ENCOUNTER 2019-12-27 10:39 | Emergency (ER) | payer MEDICAID, OTHER ==
[~2019-12-27] VITALS: Ht 165.1 cm; Wt 81.0 kg
[2019-12-27 10:41] VITALS: BP 132/83
== END 2019-12-27 11:31 | disposition left against medical advice (07) ==
LOC: ER 10:54
DX: J44.9 Chronic obstructive pulmonary disease, unspecified (principal)
CPT/HCPCS: 99281

== ENCOUNTER 2020-03-14 08:20 | Emergency (ER) | payer OTHER ==
[~2020-03-14] VITALS: Ht 157.5 cm; Wt 76.5 kg
[2020-03-14 08:25] VITALS: BP 130/82
== END 2020-03-14 11:30 | disposition home or self-care (01) ==
LOC: ER 08:20
DX: Z53.21 Procedure and treatment not carried out due to patient leaving prior to being seen by health care provider (principal)

== ENCOUNTER 2020-05-22 18:47 | Emergency (ER) | payer OTHER ==
[~2020-05-22] VITALS: Ht 160 cm; Wt 80.0 kg
[~2020-05-22 18:47] MED LIST changes: -LISI-604; +LISI20TA31
[2020-05-22] MEDS ORDERED: IPRATROPIUM BROMIDE (0.02%) 0.5MG/2.5ML NEB HHN STA (19:18)
[2020-05-22] MEDS ORDERED: ALBUTEROL (0.083%) 2.5MG/3ML NEB HHN STA (19:18)
[2020-05-22] MEDS ORDERED: METHYLPREDNISOLONE SOD SUCC 125 MG/2 ML VIAL IV STA (19:18)
[2020-05-22] MEDS ORDERED: ASPIRIN 81MG TABLET PO ONE (19:30)
[2020-05-22] MEDS ORDERED: DEXAMETHASONE 10 MG/ML VIAL IV ONE (20:00)
[2020-05-22] MEDS ORDERED: AZITHROMYCIN 500 MG in DEXT 5% WATER 250 ML IV ONE (20:00)
[2020-05-22] MEDS ORDERED: CEFTRIAXONE 1 G PREMIX 50 ML IV ONE (20:00)
[2020-05-22 20:04] LABS: BASOPHILS % 0.9 % (0.0-2.0); EOSINOPHILS % 1.6 % (0.0-5.0); HEMATOCRIT. 37.3 % (36.0-48.0); HEMOGLOBIN. 12.4 g/dL (12.0-16.0); LYMPHOCYTES % 36.9 % (20.0-50.0); MEAN CORPUSCULAR HEMOGLOBIN 31.8 pg (28.0-32.0); MEAN CORPUSCULAR VOLUME 95.6 fL (81.0-99.0); MEAN PLATELET VOLUME 7.7 fl (7.4-10.4); MONOCYTES % 7.6 % (2.0-8.0); PLATELET 252 x1000/uL (130-400); RED BLOOD CELL COUNT 3.91 mill/uL (4.2-5.4); RED CELL DISTRIBUTION WIDTH 14.2 % (11.6-14.6)
[2020-05-22 20:15] LABS: INR 0.9; PARTIAL THROMBOPLASTIN TIME 23.1 sec (23.4-31.0); PROTHROMBIN TIME 9.8 sec (9.6-11.0)
[2020-05-22 20:26] LABS: CHLORIDE 106 mEq/L (98-107)
[2020-05-22] MEDS ORDERED: KETOROLAC 15MG/ML VIAL IV ONE (20:45)
[2020-05-22 21:02] VITALS: BP 144/74
[2020-05-23] MEDS ORDERED: GABAPENTIN 300MG CAPSULE PO SCH (06:00)
[2020-05-23] MEDS ORDERED: HYDROCODONE/ACETAMINOPHEN 5/325MG TABLET PO PRN (09:45)
[2020-05-23] MEDS ORDERED: DOCUSATE SODIUM 100MG CAPSULE PO PRN (09:45)
[2020-05-23] MEDS ORDERED: ONDANSETRON HCL 4MG/2ML INJ IV PRN (09:45)
[2020-05-23] MEDS ORDERED: CLONIDINE 0.1MG TABLET PO PRN (09:45)
[2020-05-23] MEDS ORDERED: LORAZEPAM 0.5MG TABLET PO PRN (09:45)
[2020-05-23] MEDS ORDERED: IPRATROPIUM/ALBUTEROL 0.5-3(2.5)MG/3ML NEB HHN PRN (09:45)
[2020-05-23] MEDS ORDERED: ACETAMINOPHEN 325MG TABLET PO PRN ×2 (09:45)
[2020-05-23] MEDS ORDERED: METHYLPREDNISOLONE SOD SUCC 40 MG/ML VIAL IV SCH (10:00)
[2020-05-23] MEDS ORDERED: ZOLPIDEM TARTRATE 5MG TABLET PO PRN (17:15)
[2020-05-23] MEDS ORDERED: DEXTROSE 50% WATER 50ML SYRINGE IV PRN (17:15)
[2020-05-23] MEDS ORDERED: INSULIN LISPRO 100 UNITS/ML SUBCUT SCH (18:20)
[2020-05-23] MEDS ORDERED: OXYBUTYNIN CHLORIDE 5MG TABLET PO SCH (21:00)
[2020-05-23] MEDS ORDERED: BLOOD SUGAR DIAGNOSTIC STRIP TEST SCH (21:00)
[2020-05-24] MEDS ORDERED: LORATADINE 10MG TABLET PO SCH (09:00)
[2020-05-24] MEDS ORDERED: LISINOPRIL 20MG TABLET PO SCH (09:00)
[2020-05-24] MEDS ORDERED: FUROSEMIDE 40MG TABLET PO SCH (09:00)
[2020-05-24] MEDS ORDERED: PANTOPRAZOLE 40MG DR TABLET PO SCH (09:00)
[2020-05-24] MEDS ORDERED: AMLODIPINE 10MG TABLET PO SCH (09:00)
== END 2020-05-22 21:50 | disposition left against medical advice (07) ==
LOC: ER 18:47 → CANBEDREQ 21:13 → ER 21:50
DX: J44.1 Chronic obstructive pulmonary disease with (acute) exacerbation (principal); J96.00 Acute respiratory failure, unspecified whether with hypoxia or hypercapnia; J18.9 Pneumonia, unspecified organism; E87.2 Acidosis; K21.9 Gastro-esophageal reflux disease without esophagitis; E11.9 Type 2 diabetes mellitus without complications; G40.909 Epilepsy, unspecified, not intractable, without status epilepticus; M54.30 Sciatica, unspecified side; Z20.822 Contact with and (suspected) exposure to COVID-19; Z90.49 Acquired absence of other specified parts of digestive tract; Z79.84 Long term (current) use of oral hypoglycemic drugs
CPT/HCPCS: 36415; 71045; 80053; 83605; 83880; 84484; 85025; 85610; 85730; 87040; 93005; 94644; 96365; 96375; 99285; J0456; J0696; J1100; J1885; J2930; J7060; Z7610

== ENCOUNTER 2020-05-25 15:48 | Emergency (ER) | payer OTHER ==
[~2020-05-25] VITALS: Ht 165.1 cm; Wt 73.0 kg
[2020-05-25] MEDS ORDERED: CEFTRIAXONE 1 G PREMIX 50 ML IV ONE (16:30)
[2020-05-25] MEDS ORDERED: ASPIRIN 81MG TABLET PO ONE (16:30)
[2020-05-25] MEDS ORDERED: SODIUM CHLORIDE 0.9% 1,000 ML IV ONE (16:30)
[2020-05-25] MEDS ORDERED: DEXAMETHASONE 10 MG/ML VIAL IV ONE (16:30)
[2020-05-25] MEDS ORDERED: AZITHROMYCIN 500 MG in DEXT 5% WATER 250 ML IV ONE (16:30)
[2020-05-25 17:02] LABS: BASOPHILS % 1.4 % (0.0-2.0); EOSINOPHILS % 2.1 % (0.0-5.0); HEMATOCRIT. 36.4 % (36.0-48.0); HEMOGLOBIN. 11.9 g/dL (12.0-16.0); LYMPHOCYTES % 42.6 % (20.0-50.0); MEAN CORPUSCULAR HEMOGLOBIN 31.8 pg (28.0-32.0); MEAN CORPUSCULAR VOLUME 96.8 fL (81.0-99.0); MEAN PLATELET VOLUME 7.5 fl (7.4-10.4); MONOCYTES % 8.6 % (2.0-8.0); NEUTROPHILS % 45.3 % (40.0-76.0); PLATELET 253 x1000/uL (130-400); RED BLOOD CELL COUNT 3.76 mill/uL (4.2-5.4); RED CELL DISTRIBUTION WIDTH 14.8 % (11.6-14.6)
[2020-05-25 17:07] LABS: CHLORIDE 110 mEq/L (98-107)
[2020-05-25 17:12] LABS: INR 0.9; PARTIAL THROMBOPLASTIN TIME 22.8 sec (23.4-31.0); PROTHROMBIN TIME 9.8 sec (9.6-11.0)
[2020-05-25 18:45] VITALS: BP 128/79
[2020-05-25 18:47] LABS: CLARITY URINE CLEAR (CLEAR); COLOR URINE YELLOW (YELLOW); KETONES URINE NEGATIVE (NEGATIVE); LEUKOCYTE ESTERASE URINE TRACE (NEGATIVE); NITRITE URINE NEGATIVE (NEGATIVE); OCCULT BLOOD URINE NEGATIVE (NEGATIVE); PROTEIN URINE NEGATIVE (NEGATIVE); SPECIFIC GRAVITY URINE 1.022 (1.005-1.030)
== END 2020-05-25 18:45 | disposition left against medical advice (07) ==
LOC: ER 15:48 → EDBEDREQSVC 16:51 → ER 18:45 → CANBEDREQ 21:33
DX: R55 Syncope and collapse (principal); J18.9 Pneumonia, unspecified organism; J44.9 Chronic obstructive pulmonary disease, unspecified; E11.9 Type 2 diabetes mellitus without complications; E78.00 Pure hypercholesterolemia, unspecified; Z98.890 Other specified postprocedural states; Z85.6 Personal history of leukemia; Z79.899 Other long term (current) drug therapy; Z20.822 Contact with and (suspected) exposure to COVID-19
CPT/HCPCS: 36415; 71045; 80053; 81003; 83605; 83880; 84145; 84484; 85025; 85610; 85730; 87040; 87086; 96365; 96366; 96368; 96375; 99284; J0456; J0696; J1100; J7030; J7060; Z7610

== ENCOUNTER 2020-06-10 13:56 | Emergency (ER) | payer OTHER ==
[~2020-06-10] VITALS: Ht 157.5 cm; Wt 62.0 kg
[2020-06-10] MEDS ORDERED: HYDROCODONE/ACETAMINOPHEN 5/325MG TABLET PO ONE (15:15)
[2020-06-10] MEDS ORDERED: IBUPROFEN 600MG TABLET PO ONE (15:15)
[2020-06-10 15:53] VITALS: BP 159/70
[2020-06-10] MEDS ORDERED: HYDR-4346 MT (16:23)
[2020-06-10] MEDS ORDERED: IBUP-2028 MT (16:23)
== END 2020-06-10 17:13 | disposition home or self-care (01) ==
LOC: ER 14:03
DX: S63.591A Other specified sprain of right wrist, initial encounter (principal); J44.9 Chronic obstructive pulmonary disease, unspecified; E11.9 Type 2 diabetes mellitus without complications; G40.909 Epilepsy, unspecified, not intractable, without status epilepticus; I10 Essential (primary) hypertension; E78.00 Pure hypercholesterolemia, unspecified; Z85.9 Personal history of malignant neoplasm, unspecified; F17.210 Nicotine dependence, cigarettes, uncomplicated; Z90.49 Acquired absence of other specified parts of digestive tract; Z79.84 Long term (current) use of oral hypoglycemic drugs; W01.0XXA Fall on same level from slipping, tripping and stumbling without subsequent striking against object, initial encounter; Y93.89 Activity, other specified; Y92.018 Other place in single-family (private) house as the place of occurrence of the external cause
CPT/HCPCS: 29125; 73110; 73130; 99284; A4565

== ENCOUNTER 2020-09-14 10:21 | Emergency (ER) | payer OTHER ==
[~2020-09-14] VITALS: Ht 160 cm; Wt 71.5 kg
[~2020-09-14 10:21] MED LIST changes: +HYDR-4346 MT; +IBUP-2028 MT
[2020-09-14] MEDS ORDERED: KETOROLAC 30MG/ML VIAL IM ONE (11:00)
[2020-09-14] MEDS ORDERED: HYDROCODONE/ACETAMINOPHEN 5/325MG TABLET PO ONE (11:00)
[2020-09-14 11:37] LABS: CLARITY URINE CLEAR (CLEAR); COLOR URINE YELLOW (YELLOW); KETONES URINE NEGATIVE (NEGATIVE); LEUKOCYTE ESTERASE URINE NEGATIVE (NEGATIVE); NITRITE URINE NEGATIVE (NEGATIVE); OCCULT BLOOD URINE NEGATIVE (NEGATIVE); PROTEIN URINE NEGATIVE (NEGATIVE); UROBILINOGEN URINE 0.2 E.U./dL (0.2-1.0)
[2020-09-14] MEDS ORDERED: HYDR-4346 MT (11:41)
[2020-09-14] MEDS ORDERED: NAPR-1176 MT (11:41)
[2020-09-14 12:01] VITALS: BP 121/77
== END 2020-09-14 12:01 | disposition home or self-care (01) ==
LOC: ER 10:21
DX: M54.5 Low back pain (principal); I11.0 Hypertensive heart disease with heart failure; I50.9 Heart failure, unspecified; J44.1 Chronic obstructive pulmonary disease with (acute) exacerbation; E78.00 Pure hypercholesterolemia, unspecified; J45.909 Unspecified asthma, uncomplicated; Z79.899 Other long term (current) drug therapy; Z90.49 Acquired absence of other specified parts of digestive tract; Z86.59 Personal history of other mental and behavioral disorders
CPT/HCPCS: 81003; 96372; 99283; J1885

== ENCOUNTER 2020-12-25 01:40 | Emergency (ER) | payer OTHER ==
[~2020-12-25] VITALS: Ht 157.5 cm; Wt 69.0 kg
[~2020-12-25 01:40] MED LIST changes: +NAPR-1176 MT
[2020-12-25 02:00] VITALS: BP 144/102
[2020-12-25 04:30] LABS: BASOPHILS % 1.1 % (0.0-2.0); EOSINOPHILS % 1.4 % (0.0-5.0); HEMATOCRIT. 39.1 % (36.0-48.0); HEMOGLOBIN. 13.1 g/dL (12.0-16.0); LYMPHOCYTES % 39.5 % (20.0-50.0); MEAN CORPUSCULAR HEMOGLOBIN 32.4 pg (28.0-32.0); MEAN CORPUSCULAR VOLUME 96.6 fL (81.0-99.0); MEAN PLATELET VOLUME 7.5 fl (7.4-10.4); MONOCYTES % 8.5 % (2.0-8.0); NEUTROPHILS % 49.5 % (40.0-76.0); PLATELET 258 x1000/uL (130-400); RED BLOOD CELL COUNT 4.04 mill/uL (4.2-5.4); RED CELL DISTRIBUTION WIDTH 13.5 % (11.6-14.6)
[2020-12-25 04:40] LABS: CHLORIDE 112 mEq/L (98-107)
[2020-12-25 04:41] LABS: INR 0.9; PROTHROMBIN TIME 10.1 sec (9.6-11.0)
[2020-12-25] MEDS ORDERED: VISCOUS LIDOCAINE 2% 15 ML UDC MM PRN (04:45)
[2020-12-25] MEDS ORDERED: FAMOTIDINE 20MG TABLET PO ONE (04:45)
[2020-12-25] MEDS ORDERED: MAGNESIUM/ALUMINUM HYDROXIDE/SIMETHICONE 30ML UDC PO ONE (04:45)
[2020-12-25 05:05] LABS: CLARITY URINE CLOUDY (CLEAR); COLOR URINE DARK YELLOW (YELLOW); KETONES URINE TRACE (NEGATIVE); LEUKOCYTE ESTERASE URINE NEGATIVE (NEGATIVE); NITRITE URINE NEGATIVE (NEGATIVE); OCCULT BLOOD URINE NEGATIVE (NEGATIVE); PROTEIN URINE 1+ (NEGATIVE); SPECIFIC GRAVITY URINE 1.027 (1.005-1.030); UROBILINOGEN URINE 0.2 E.U./dL (0.2-1.0)
[2020-12-25] MEDS ORDERED: METH-773 MT (05:45)
[2020-12-25] MEDS ORDERED: MAG355OR21 MT (05:45)
[2020-12-25] MEDS ORDERED: LIDO1ADH5 TP (05:47)
== END 2020-12-25 06:48 | disposition home or self-care (01) ==
LOC: ER 01:40
DX: R10.13 Epigastric pain (principal); M54.30 Sciatica, unspecified side; I11.0 Hypertensive heart disease with heart failure; I50.9 Heart failure, unspecified; E11.9 Type 2 diabetes mellitus without complications; J44.9 Chronic obstructive pulmonary disease, unspecified; G40.909 Epilepsy, unspecified, not intractable, without status epilepticus; E78.00 Pure hypercholesterolemia, unspecified; Z90.49 Acquired absence of other specified parts of digestive tract; Z79.84 Long term (current) use of oral hypoglycemic drugs
CPT/HCPCS: 36415; 80053; 81003; 85025; 93005; 99284

== ENCOUNTER 2021-03-11 12:32 | Emergency (ER) | payer OTHER ==
[~2021-03-11 12:32] MED LIST changes: +LIDO1ADH5 TP; +MAG355OR21 MT; +METH-773 MT
== END 2021-03-11 13:13 | disposition left against medical advice (07) ==
LOC: ER 12:32
DX: Z53.21 Procedure and treatment not carried out due to patient leaving prior to being seen by health care provider (principal)

== ENCOUNTER 2021-09-20 08:11 | Emergency (ER) | payer MEDICAID, OTHER ==
[~2021-09-20] VITALS: Ht 160 cm; Wt 68.0 kg
[~2021-09-20 08:11] MED LIST changes: -POTA8TAB4; +POTA8TAB70
[2021-09-20 08:22] VITALS: BP 140/97
[2021-09-20] MEDS ORDERED: CEPH500C2 MT (10:44)
[2021-09-20] MEDS ORDERED: IBUP-2028 MT (10:44)
== END 2021-09-20 10:55 | disposition home or self-care (01) ==
LOC: ER 08:11
DX: B00.89 Other herpesviral infection (principal); J44.1 Chronic obstructive pulmonary disease with (acute) exacerbation; I50.9 Heart failure, unspecified; Z79.899 Other long term (current) drug therapy; Z90.49 Acquired absence of other specified parts of digestive tract; Z86.59 Personal history of other mental and behavioral disorders
CPT/HCPCS: 73140; 99283

== ENCOUNTER 2025-01-19 10:06 | Emergency (ER) | payer MEDICAID ==
[~2025-01-19] VITALS: Ht 157.5 cm; Wt 71.0 kg
[~2025-01-19 10:06] MED LIST changes: +AMLO-905; -AMLO10TA4; +ATOR20TA65 PO; +BIMA2.5D4 EACHEYE; -COR12; +CYCL10TA21 PO; -DIXL5; +DIXL5 PO; -FURO-151; -GABA300C; +GABA800T97 PO; +GLIP5TAB22 MT; -GLYB5TAB4; +HYDR-4009 PO; -HYDR-4346 MT; +HYDR50TA55 PO; -IBUP-2028 MT; -LIDO1ADH5 TP; +LIRA0.6P SQ; -LISI20TA31; -LORA10CA; +LOSA50TA41 PO; -MAG355OR21 MT; -METF-416; +METF-416 PO; -METH-773 MT; +METH4TAB95 MT; -NAPR-1176 MT; -POTA8TAB70; +PRAZ1CAP5 PO; -PROT40; +SERT50TA PO; +TRAZ-252 PO; -ZOLP10TA2
[2025-01-19 10:24] VITALS: O2SAT 98
[2025-01-19 11:46] VITALS: TEMP 36.6; O2SAT 96
[2025-01-19] MEDS: KETOROLAC 15MG/ML VIAL IM ONE (11:53)
[2025-01-19 12:39] VITALS: BP 112/89; PULSE 63; RESP 22; TEMP 97.88
[2025-01-19 12:44] LABS: BASOPHILS % 1.1 % (0.0-2.0); EOSINOPHILS % 1.3 % (0.0-5.0); HEMATOCRIT. 37.4 % (36.0-48.0); HEMOGLOBIN. 12.6 g/dL (12.0-16.0); LYMPHOCYTES % 29.9 % (20.0-50.0); MEAN PLATELET VOLUME 7.5 fl (7.4-10.4); MONOCYTES % 7.0 % (2.0-8.0); NEUTROPHILS % 60.7 % (40.0-76.0); PLATELET 237 x1000/uL (130-400); RED BLOOD CELL COUNT 3.84 mill/uL (4.2-5.4); RED CELL DISTRIBUTION WIDTH 12.9 % (11.6-14.6)
[2025-01-19 13:00] LABS: CREATININE 0.9 mg/dL (0.6-1.0); UREA NITROGEN BLOOD 6 mg/dL (9-23)
[2025-01-19 13:02] LABS: ASPARTATE AMINOTRANSFERASE 20 IU/L (<34); BILIRUBIN DIRECT 0.1 mg/dL (<=3.0); BILIRUBIN TOTAL 0.4 mg/dL (0.1-1.0); PROTEIN TOTAL 6.7 g/dL (6.0-8.3)
[2025-01-19] MEDS ORDERED: NALOXONE HCL 0.4MG/ML VIAL IV PRN (15:30)
[2025-01-19] MEDS ORDERED: MORPHINE SULFATE 4 MG/ML INJ (FOR IV/IM USE) IV PRN (15:30)
[2025-01-19] MEDS ORDERED: DEXAMETHASONE 4MG/ML 1ML VIAL IV SCH (18:00)
== END 2025-01-19 14:23 | disposition left against medical advice (07) ==
LOC: ER 10:06 → EDBEDREQ 13:08 → EDBEDREQTM 13:08 → ER 14:23 → CMPBEDREQ 01-20 07:34
DX: M54.9 Dorsalgia, unspecified (principal); E11.9 Type 2 diabetes mellitus without complications; F20.9 Schizophrenia, unspecified; F31.9 Bipolar disorder, unspecified; J44.9 Chronic obstructive pulmonary disease, unspecified; I50.9 Heart failure, unspecified; M54.2 Cervicalgia; R51.9 Headache, unspecified; Z90.49 Acquired absence of other specified parts of digestive tract; Z79.899 Other long term (current) drug therapy
CPT/HCPCS: 99285; 72141; 80076; 80048; 85025; 36415; 72146; 72148; 96372; J1885